=== PATIENT | female | born 1990 | race Hispanic/Latino ===

== ENCOUNTER 2018-11-30 15:54 | Inpatient (IN) | payer BC ==
[2018-11-30] MEDS ORDERED: CORDARONE 150 MG in D5W 100 ML IV ONE (16:08)
[2018-11-30] MEDS ORDERED: VERSED IV ONE (16:17)
[2018-11-30] MEDS ORDERED: ZOFRAN ONE (16:21)
[2018-11-30] MEDS ORDERED: VERSED IV NR (17:00)
[2018-11-30] MEDS ORDERED: CORDARONE 900 MG in D5W 482 ML IV SCH (17:00)
[2018-11-30 17:03] LABS: Basophils # (Auto) 0.1 K/mm3 (0.0-0.1); Basophils % (Auto) 1.3 % (0.0-1.8); Eosinophils # (Auto) 0.1 K/mm3 (0.0-0.4); Eosinophils % (Auto) 0.9 % (0.0-4.3); Hematocrit 39.2 % (30.3-42.9); Hemoglobin 13.3 gm/dl (10.1-14.3); Lymphocytes # (Auto) 1.4 K/mm3 (1.2-5.4); Lymphocytes % (Auto) 23.5 % (13.4-35.0); Mean Corpuscular HGB Conc 34 % (30-34); Mean Corpuscular Volume 81 fl (79-97); Monocytes # (Auto) 0.5 K/mm3 (0.0-0.8); Monocytes % (Auto) 7.9 % (0.0-7.3); Platelet Count 215 K/mm3 (140-440); Red Blood Count 4.82 M/mm3 (3.65-5.03); Red Cell Distribution Width 12.7 % (13.2-15.2)
[2018-11-30 17:17] LABS: INR 0.9 (0.87-1.13)
[2018-11-30 17:18] LABS: Partial Thromboplastin Time 25.5 Sec. (24.2-36.6)
[2018-11-30 17:23] LABS: Creatine Kinase MB 1.2 ng/mL (0.0-4.0)
[2018-11-30 17:27] LABS: BUN/Creatinine Ratio 25; Blood Urea Nitrogen 10 mg/dL (7-17); Calcium 8.7 mg/dL (8.4-10.2); Hemolysis Index 16
--- NOTE | 2018-11-30 17:37 | Emergency Department Report ---
ED Palpitations HPI - General Chief Complaint: Arrhythmia/Palpitations Stated Complaint: HIGH HEART RATE Time Seen by Provider: 11/30/18 16:07 Source: patient, EMS Mode of arrival: Stretcher Limitations: No Limitations - History of Present Illness Initial Comments: 28-year-old female with a past medical history of PCOS and WPW presents the hospital with complaints of palpitations and shortness of breath since 11 AM. Patient denies chest pain or diaphoresis. Patient is noted to have a narrow and wide complex tachycardic arrhythmia with a rate in the high 200s. Patient received adenosine without improvement. She continues to complain of shortness of breath and palpitations without pain. Patient has had episodes of tachycardia associated with WPW. A daily medication was recommended however, patient did not want to take a daily medication for an infrequent tachycardic episodes. Her warp knitter helper is Dr. Pérez (sp?) With [facility] - Related Data Allergies Allergy/AdvReac Type Severity Reaction Status Date / Time metformin AdvReac Hives Verified 11/30/18 17:24 ED Review of Systems ROS: Stated complaint: HIGH HEART RATE Other details as noted in HPI Comment: All other systems reviewed and negative ED Past Medical Hx - Past Medical History Previous Medical History?: Yes Additional medical history: WPW, Polycystic ovaries - Surgical History Past Surgical History?: No - Social History Smoking Status: Current Some Day Smoker Substance Use Type: Alcohol ED Physical Exam - General Limitations: No Limitations - Other Other exam information: General: No acute distress Head exam: Atraumatic, normocephalic Eyes exam: Normal appearance, pupils equal reactive to light, extraocular movements intact ENT: Moist mucous membrane, normal oropharynx Neck exam: Normal inspection, full range of motion, no meningismus nontender Respiratory exam: Clear to auscultation bilateral, no wheezes, rales, crackles Cardiovascular: Tachycardic irregular rhythm Abdomen: Soft, nondistended, and nontender, with normal bowel sounds, no rebound, or guarding Extremity: Full range of motion normal inspection no deformity Back: Normal Inspection, full range of motion, no tenderness Neurologic: Alert, oriented x3, cranial nerves intact, no motor or sensory deficit Psychiatric: normal affect, normal mood Skin: Warm, dry, intact ED Course Vital Signs 11/30/18 11/30/18 11/30/18 16:04 16:15 16:30 Pulse Rate 202 H 232 H 130 H Respiratory 17 28 H Rate Blood Pressure 137/70 111/77 11/30/18 11/30/18 11/30/18 16:45 17:00 17:15 Pulse Rate 120 H 120 H 115 H Respiratory 23 14 19 Rate Blood Pressure 137/70 119/77 111/77 - Consultations Consultation #1: 11/30/18 17:37 case d/w Dr doty, will consult. - Procedure Description Procedures done: Synchronized cardioversion. Patient did not respond to amiodarone 150 mg boluses and continued to have heart rates to close the 300 with intermittent wide-complex tachycardia. Patient received Versed 5 mg and 4mg of Zofran. Patient received synchronized cardioversion at 50 J without improvement. Increase to 100 J of synchronized cardioversion with conversion to sinus rhythm. Patient tolerated procedure well ED Medical Decision Making - Lab Data Result diagrams: 11/30/18 16:47 11/30/18 16:47 Lab Results 11/30/18 11/30/18 11/30/18 Range/Units 16:47 16:47 16:47 WBC 6.1 (4.5-11.0) K/mm3 RBC 4.82 (3.65-5.03) M/mm3 Hgb 13.3 (10.1-14.3) gm/dl Hct 39.2 (30.3-42.9) % MCV 81 (79-97) fl MCH 28 (28-32) pg MCHC 34 (30-34) % RDW 12.7 L (13.2-15.2) % Plt Count 215 (140-440) K/mm3 Lymph % (Auto) 23.5 (13.4-35.0) % [place] % (Auto) 7.9 H (0.0-7.3) % Eos % (Auto) 0.9 (0.0-4.3) % Baso % (Auto) 1.3 (0.0-1.8) % Lymph # 1.4 (1.2-5.4) K/mm3 [place] # 0.5 (0.0-0.8) K/mm3 Eos # 0.1 (0.0-0.4) K/mm3 Baso # 0.1 (0.0-0.1) K/mm3 Seg Neutrophils % 66.4 (40.0-70.0) % Seg Neutrophils # 4.0 (1.8-7.7) K/mm3 PT (12.2-14.9) Sec. INR (0.87-1.13) APTT (24.2-36.6) Sec. Sodium 147 H (137-145) mmol/L Potassium 4.1 (3.6-5.0) mmol/L Chloride 108.7 H (98-107) mmol/L Carbon Dioxide 26 (22-30) mmol/L Anion Gap 16 mmol/L BUN 10 (7-17) mg/dL Creatinine 0.4 L (0.7-1.2) mg/dL Estimated GFR > 60 ml/min BUN/Creatinine Ratio 25 % Glucose 109 H (65-100) mg/dL Calcium 8.7 (8.4-10.2) mg/dL Magnesium 1.90 (1.7-2.3) mg/dL Total Creatine Kinase 47 (30-135) units/L CK-MB (CK-2) 1.2 (0.0-4.0) ng/mL CK-MB (CK-2) Rel Index 2.5 (0-4) Troponin T < 0.010 (0.00-0.029) ng/mL TSH < 0.005 L (0.270-4.200) mlU/mL Free T4 3.40 H (0.76-1.46) ng/dL HCG, Qual (Negative) 11/30/18 11/30/18 Range/Units 16:47 16:47 WBC (4.5-11.0) K/mm3 RBC (3.65-5.03) M/mm3 Hgb (10.1-14.3) gm/dl Hct (30.3-42.9) % MCV (79-97) fl MCH (28-32) pg MCHC (30-34) % RDW (13.2-15.2) % Plt Count (140-440) K/mm3 Lymph % (Auto) (13.4-35.0) % [place] % (Auto) (0.0-7.3) % Eos % (Auto) (0.0-4.3) % Baso % (Auto) (0.0-1.8) % Lymph # (1.2-5.4) K/mm3 [place] # (0.0-0.8) K/mm3 Eos # (0.0-0.4) K/mm3 Baso # (0.0-0.1) K/mm3 Seg Neutrophils % (40.0-70.0) % Seg Neutrophils # (1.8-7.7) K/mm3 PT 12.6 (12.2-14.9) Sec. INR 0.90 (0.87-1.13) APTT 25.5 (24.2-36.6) Sec. Sodium (137-145) mmol/L Potassium (3.6-5.0) mmol/L Chloride (98-107) mmol/L Carbon Dioxide (22-30) mmol/L Anion Gap mmol/L BUN (7-17) mg/dL Creatinine (0.7-1.2) mg/dL Estimated GFR ml/min BUN/Creatinine Ratio % Glucose (65-100) mg/dL Calcium (8.4-10.2) mg/dL Magnesium (1.7-2.3) mg/dL Total Creatine Kinase (30-135) units/L CK-MB (CK-2) (0.0-4.0) ng/mL CK-MB (CK-2) Rel Index (0-4) Troponin T (0.00-0.029) ng/mL TSH (0.270-4.200) mlU/mL Free T4 (0.76-1.46) ng/dL HCG, Qual Negative (Negative) - EKG Data -: EKG Interpreted by Me (afflutter wpw 2:1 block) EKG shows normal: axis (qrs -52), QRS complexes (qrsd 123) Rate: tachycardia (179) - EKG Data When compared to previous EKG there are: previous EKG unavailable 11/30/18 17:56 EKG after cardioversion shows sinus tach rate 129 with a repol abnormality. WPW - Medical Decision Making Patient did not respond to amiodarone 150 mg boluses and continued to have heart rates to close the 300s with intermittent wide-complex tachycardia. Patient received Versed 5 mg and 4mg of Zofran. Patient received synchronized cardioversion at 50 J without improvement. Increase to 100 J of synchronized cardioversion with conversion to sinus rhythm. Patient tolerated procedure well Case discussed with cardiology Dr. Farah Case discussed with hospitalist Dr Alan for admission - Differential Diagnosis SVT, A. fib, a flutter, WPW, V. tach Critical Care Time: Yes Critical care time in (mins) excluding proc time.: 35 Critical care attestation.: If time is entered above; I have spent that time in minutes in the direct care of this critically ill patient, excluding procedure time. ED Disposition Clinical Impression: WPW (Mgdtb-Nxjqtmjsu-Kinpc syndrome), Atrial flutter with rapid ventricular response Disposition: DC-09 OP ADMIT IP TO THIS HOSP Is pt being admited?: Yes Condition: Stable Time of Disposition: 17:43 (Dr Alan/hosp)
[2018-11-30] MEDS ORDERED: ZOFRAN IV ONE (17:57)
[2018-11-30] MEDS ORDERED: NACL 0.9% 1000 ML 1,000 ML IV ONE (17:59)
[2018-11-30] MEDS ORDERED: CORDARONE IV ONE (18:58)
[2018-11-30] MEDS ORDERED: TYLENOL PO PRN (22:07)
[2018-11-30] MEDS ORDERED: ZOFRAN IV PRN (22:07)
[2018-11-30] MEDS ORDERED: DILAUDID IV PRN (22:07)
[2018-11-30] MEDS ORDERED: SODIUM CHLORIDE FLUSH SYRINGE 10 ML IV PRN (22:07)
--- NOTE | 2018-11-30 22:14 | History and Physical Report ---
History of Present Illness Date of examination: 11/30/18 Date of admission: 11/30/18 18:00 Medications and Allergies Allergies Allergy/AdvReac Type Severity Reaction Status Date / Time metformin AdvReac Hives Verified 11/30/18 17:24 Active Meds: Active Medications Midazolam HCl (Versed) 5 mg IV ONCE NR Stop: 11/30/18 23:59 Last Admin: 11/30/18 16:18 Dose: 5 mg Documented by: Exam - Constitutional Vitals: Temp Pulse Resp BP Pulse Ox 98.8 F 117 H 14 118/72 98 11/30/18 19:50 11/30/18 19:50 11/30/18 19:50 11/30/18 19:50 11/30/18 19:50 Results - Labs CBC & Chem 7: 11/30/18 16:47 11/30/18 16:47 Labs: Laboratory Last Values WBC 6.1 K/mm3 (4.5-11.0) 11/30/18 16:47 RBC 4.82 M/mm3 (3.65-5.03) 11/30/18 16:47 Hgb 13.3 gm/dl (10.1-14.3) 11/30/18 16:47 Hct 39.2 % (30.3-42.9) 11/30/18 16:47 MCV 81 fl (79-97) 11/30/18 16:47 MCH 28 pg (28-32) 11/30/18 16:47 MCHC 34 % (30-34) 11/30/18 16:47 RDW 12.7 % (13.2-15.2) L 11/30/18 16:47 Plt Count 215 K/mm3 (140-440) 11/30/18 16:47 Lymph % (Auto) 23.5 % (13.4-35.0) 11/30/18 16:47 [place] % (Auto) 7.9 % (0.0-7.3) H 11/30/18 16:47 Eos % (Auto) 0.9 % (0.0-4.3) 11/30/18 16:47 Baso % (Auto) 1.3 % (0.0-1.8) 11/30/18 16:47 Lymph # 1.4 K/mm3 (1.2-5.4) 11/30/18 16:47 [place] # 0.5 K/mm3 (0.0-0.8) 11/30/18 16:47 Eos # 0.1 K/mm3 (0.0-0.4) 11/30/18 16:47 Baso # 0.1 K/mm3 (0.0-0.1) 11/30/18 16:47 Seg Neutrophils % 66.4 % (40.0-70.0) 11/30/18 16:47 Seg Neutrophils # 4.0 K/mm3 (1.8-7.7) 11/30/18 16:47 PT 12.6 Sec. (12.2-14.9) 11/30/18 16:47 INR 0.90 (0.87-1.13) 11/30/18 16:47 APTT 25.5 Sec. (24.2-36.6) 11/30/18 16:47 Sodium 147 mmol/L (137-145) H 11/30/18 16:47 Potassium 4.1 mmol/L (3.6-5.0) 11/30/18 16:47 Chloride 108.7 mmol/L (98-107) H 11/30/18 16:47 Carbon Dioxide 26 mmol/L (22-30) 11/30/18 16:47 Anion Gap 16 mmol/L 11/30/18 16:47 BUN 10 mg/dL (7-17) 11/30/18 16:47 Creatinine 0.4 mg/dL (0.7-1.2) L 11/30/18 16:47 Estimated GFR > 60 ml/min 11/30/18 16:47 BUN/Creatinine Ratio 25 % 11/30/18 16:47 Glucose 109 mg/dL (65-100) H 11/30/18 16:47 Calcium 8.7 mg/dL (8.4-10.2) 11/30/18 16:47 Magnesium 1.90 mg/dL (1.7-2.3) 11/30/18 16:47 Total Creatine Kinase 47 units/L (30-135) 11/30/18 16:47 CK-MB (CK-2) 1.2 ng/mL (0.0-4.0) 11/30/18 16:47 CK-MB (CK-2) Rel Index 2.5 (0-4) 11/30/18 16:47 Troponin T < 0.010 ng/mL (0.00-0.029) 11/30/18 16:47 TSH < 0.005 mlU/mL (0.270-4.200) L 11/30/18 16:47 Free T4 3.40 ng/dL (0.76-1.46) H 11/30/18 16:47 HCG, Qual Negative (Negative) 11/30/18 16:47
[2018-11-30] MEDS: D5/0.45NS 1,000 ML IV SCH (22:52)
[2018-11-30] MEDS: LOPRESSOR PO SCH (22:53)
[2018-12-01 05:44] LABS: Alanine Aminotransferase 67 units/L (7-56); Albumin 3.3 g/dL (3.9-5); BUN/Creatinine Ratio 23; Blood Urea Nitrogen 7 mg/dL (7-17); Calcium 8.7 mg/dL (8.4-10.2); Hemolysis Index 7
--- NOTE | 2018-12-01 06:28 | Event Note ---
Date: 11/30/18 See H/p in reports WPW Syndrome with SVT--Cardioverted Thyrotoxicosiis--New onset
[2018-12-01] MEDS: TAPAZOLE PO SCH ×3 (06:33→21:23)
--- NOTE | 2018-12-01 07:14 | History and Physical Report ---
CHIEF COMPLAINT: Palpitations since 11:00 a.m. HISTORY OF PRESENT ILLNESS: A 28-year-old with past medical history of WPW syndrome, presents with palpitations and shortness of breath since 11:00 a.m. No chest pain, no diaphoresis. The patient was noted to have a wide complex tachycardia with a rate in the high 200s. The patient was given adenosine without improvement. The patient continued to have palpitations. The patient was initially cardioverted with 50 joules of shock and the second cardioversion was with 100 joules at which point she converted back to sinus tachycardia. This was done in the Emergency Room. The patient is being admitted for further treatment. PAST MEDICAL HISTORY: As mentioned WPW syndrome and polycystic ovaries. PAST SURGICAL HISTORY: None. SOCIAL HISTORY: Smokes over a pack a day. Alcohol occasionally. FAMILY HISTORY: Hypertension. REVIEW OF SYSTEMS: Significant for palpitations, had WPW syndrome with SVT in the past. The patient follows with a certified pharmacy tech at [facility]. Otherwise, review of systems negative. PHYSICAL EXAMINATION: GENERAL: Young female, cooperative during examination, pleasant. VITAL SIGNS: Heart rate of 117, temperature 98.2, pulse is 117, blood pressure 109/64. HEENT: Unremarkable. NECK: Supple, no thyromegaly present, no carotid bruit. LUNGS: Clear to auscultation and percussion. Good air entry. CARDIOVASCULAR: S1, S2 heard. No gallop, no murmur, no rub. Apical impulse in left fifth intercostal space and midclavicular line. ABDOMEN: Soft and benign. No hepatosplenomegaly, no guarding, no rigidity. Hernial orifices are normal. EXTREMITIES: Good pedal pulses. No pedal edema. CENTRAL NERVOUS SYSTEM: Alert and oriented x 4, nonfocal exam. SKIN: Normal. LABORATORY DATA: Significant for sodium of 147, TSH of less than 0.005, free T4 of 3.40. ASSESSMENT AND PLAN: 1. Supraventricular tachycardia. The patient converted back to sinus tachycardia. The patient initiated on metoprolol. Cardiology consult requested. 2. Thyrotoxicosis, new onset. The patient does not know about her thyroid problem. TSH is low and free T4 is high, consistent with thyrotoxicosis. Thyroid panel ordered, antibodies ordered. The patient is initiated on methimazole 5 mg q.8h. after the blood is drawn for the thyroid panel. The patient to follow with Endocrinology as outpatient. 3. Nicotine dependence. Nicoderm patch. 4. Deep venous thrombosis prophylaxis, Lovenox and GI prophylaxis. JOB# [id number] VSEpifanio/NTS
[2018-12-01] MEDS: D5/0.45NS 1,000 ML IV SCH ×2 (07:19→18:37)
--- NOTE | 2018-12-01 11:52 | Consultation ---
Addendum entered and electronically signed by PÉREZ MURO MD 12/01/18 14:48: Patient is in SR with WPW pattern, Will hold beta liam.F/U Echo. Original Note: History of Present Illness Consult date: 12/01/18 Requesting physician: CEE WERNER Consult reason: tachycardia, other (wpw) History of present illness: The pt is a 28-year-old female with a past medical history of PCOS and WPW s/p ablation at 18 years of age who presented the hospital with complaints of palpitations and shortness of breath since 11 AM on the day of presentation. Patient denies chest pain or diaphoresis. Patient was noted to have a narrow and wide complex tachycardia with a rate in the high 200s. Patient received adenosine and IV amio without improvement. She received synchronized cardioversion at 50 J without improvement and then 100 J of synchronized cardioversion with conversion to sinus rhythm in ED. She has remained in SR/ST overnight. She denies any current cardiac complaints. She has been found to have significant hyperthyroidism, no prior history of thyroid issues. Her transcription manager is Dr. Pérez (sp?) with [facility]. Of note, she has a 4 month old child and is still breast feeding. Past History Past Medical History: other (WPW) Past Surgical History: Other (s/p ablation at 18 YOA) Medications and Allergies Allergies Allergy/AdvReac Type Severity Reaction Status Date / Time metformin AdvReac Hives Verified 11/30/18 17:24 Home Medications Medication Instructions Recorded Confirmed Last Taken Type No Known Home Medications [No 11/30/18 11/30/18 Unknown History Reported Home Medications] Active Meds: Active Medications Acetaminophen (Tylenol) 650 mg PO Q4H PRN PRN Reason: Pain MILD(1-3)/Fever >100.5/DIEZ Hydromorphone HCl (Dilaudid) 0.5 mg IV Q3H PRN PRN Reason: Pain , Severe (7-10) Dextrose/Sodium Chloride (D5/0.45ns) 1,000 mls @ 100 mls/hr IV DIRECT HODA Last Admin: 12/01/18 07:19 Dose: 100 mls/hr Documented by: Methimazole (Tapazole) 5 mg PO Q8HR HODA Last Admin: 12/01/18 06:33 Dose: 5 mg Documented by: Metoprolol Tartrate (Lopressor) 25 mg PO Q12HR [facility] Last Admin: 11/30/18 22:53 Dose: 25 mg Documented by: Nicotine (Habitrol) 14 mg TD QDAY [facility] Ondansetron HCl (Zofran) 4 mg IV Q8H PRN PRN Reason: Nausea And Vomiting Sodium Chloride (Sodium Chloride Flush Syringe 10 Ml) 10 ml IV BID [facility] Sodium Chloride (Sodium Chloride Flush Syringe 10 Ml) 10 ml IV PRN PRN PRN Reason: LINE FLUSH Review of Systems Constitutional: no weight loss, no weight gain, no fever, no chills, no sweats Ears, nose, mouth and throat: no ear pain, no nose pain, no sinus pressure, no sinus pain Cardiovascular: palpitations, rapid/irregular heart beat, shortness of breath, dyspnea on exertion, no chest pain, no orthopnea, no edema, no syncope, no lightheadedness, no leg edema Respiratory: shortness of breath, dyspnea on exertion, no cough, no congestion, no wheezing, no pain on inspiration Gastrointestinal: no abdominal pain, no nausea, no vomiting, no diarrhea, no constipation, no change in bowel habits Genitourinary Female: no pelvic pain, no flank pain, no dysuria, no urinary frequency, no urgency Musculoskeletal: no neck stiffness, no neck pain, no shooting arm pain, no arm numbness/tingling, no low back pain, no shooting leg pain, no leg numbness/tingling Integumentary: no rash, no pruritis, no redness, no sores, no wounds Neurological: no head injury, no paralysis, no weakness, no parathesias, no numbness, no tingling, no seizures, no syncope Psychiatric: no anxiety Endocrine: no cold intolerance, no heat intolerance Hematologic/Lymphatic: no easy bruising, no easy bleeding Allergic/Immunologic: no urticaria, no wheezing Physical Examination Vital Signs Pulse 202 H 11/30/18 16:04 General appearance: no acute distress HEENT: Positive: PERRL, Normocephaly, Mucus Membranes Moist Neck: Positive: neck supple, trachea midline Cardiac: Positive: Reg Rate and Rhythm, S1/S2 Lungs: Positive: clear to auscultation Neuro: Positive: Grossly Intact, Cranial Nerve 2-12 Intact Abdomen: Positive: Soft. Negative: Tender Skin: Positive: Clear. Negative: Rash, Wound Musculoskeletal: No Pain Extremities: Absent: edema Results 11/30/18 16:47 12/01/18 04:29 Cardiac Enzymes 11/30/18 12/01/18 Range/Units 16:47 04:29 AST 33 (5-40) units/L CK-MB (CK-2) 1.2 (0.0-4.0) ng/mL Coagulation 11/30/18 Range/Units 16:47 PT 12.6 (12.2-14.9) Sec. INR 0.90 (0.87-1.13) APTT 25.5 (24.2-36.6) Sec. CBC 11/30/18 Range/Units 16:47 WBC 6.1 (4.5-11.0) K/mm3 RBC 4.82 (3.65-5.03) M/mm3 Hgb 13.3 (10.1-14.3) gm/dl Hct 39.2 (30.3-42.9) % Plt Count 215 (140-440) K/mm3 Lymph # 1.4 (1.2-5.4) K/mm3 [place] # 0.5 (0.0-0.8) K/mm3 Eos # 0.1 (0.0-0.4) K/mm3 Baso # 0.1 (0.0-0.1) K/mm3 Comprehensive Metabolic Panel 11/30/18 12/01/18 Range/Units 16:47 04:29 Sodium 147 H 143 (137-145) mmol/L Potassium 4.1 4.0 (3.6-5.0) mmol/L Chloride 108.7 H 107.9 H (98-107) mmol/L Carbon Dioxide 26 24 (22-30) mmol/L BUN 10 7 (7-17) mg/dL Creatinine 0.4 L 0.3 L (0.7-1.2) mg/dL Glucose 109 H 105 H (65-100) mg/dL Calcium 8.7 8.7 (8.4-10.2) mg/dL AST 33 (5-40) units/L ALT 67 H (7-56) units/L Alkaline Phosphatase 116 (35-129) units/L Total Protein 5.5 L (6.3-8.2) g/dL Albumin 3.3 L (3.9-5) g/dL - Imaging and Cardiology Echo: pending EKG: report reviewed, image reviewed EKG interpretations - Telemetry EKG Rhythm: Sinus Tachycardia - EKG Supraventricular dysrhythmia: atrial flutter Assessment and Plan Agree with current cardiac regimen - PO lopressor. Obtain echo. Obtain EP c onsultation. Pt's belly dancer is Dr. Pérez (sp?) with [facility]. She states that if ablation is ultimately required, she wishes to return to her primary cardiology team for this procedure. The patient has been seen in conjunction with Dr. Ridley who agrees with the assessment and plan of care. - Patient Problems (1) Atrial flutter with rapid ventricular response Current Visit: Yes Status: Acute (2) WPW (Frfjl-Domlmkkcu-Stgql syndrome) Current Visit: Yes Status: Chronic (3) Hyperthyroidism Current Visit: Yes Status: Chronic (4) History of prior ablation treatment Current Visit: Yes Status: Resolved
[2018-12-01] MEDS: SODIUM CHLORIDE FLUSH SYRINGE 10 ML IV SCH ×2 (12:20→22:00)
[2018-12-01] MEDS: HABITROL TD SCH (12:21)
[2018-12-01] MEDS: LOPRESSOR PO SCH (12:21)
--- NOTE | 2018-12-01 15:21 | Progress Note ---
Assessment and Plan Assessment and plan: WPW syndrome Atrial flutter with rapid ventricular response - Patient was shocked in the ED and converted to sinus rhythm - Patient had history of ablation - Followed by [facility] [employer] - Was on beta liam, and held today per cardiology Hypothyroidism - On methimazole - Need outpatient follow-up with interactive developer, discussed that in detail with the patient and verbalized she understood DVT prophylaxis - Lovenox Disposition - Continue inpatient care History Interval history: Patient was seen and evaluated this morning, no palpitation. Hospitalist Physical - Physical exam Narrative exam: Not in cardiopulmonary distress. The patient appeared well nourished and normally developed. Vital signs as documented. Head exam is unremarkable. No scleral icterus . Neck is without jugular venous distension, thyromegaly, or carotid bruits. Lungs are clear to auscultation. Cardiac exam reveals regular rate and Rhythm. Abdominal exam reveals normal bowel sounds, no masses, no organomegaly and no aortic enlargement. Extremities are nonedematous and both femoral and pedal pulses are normal. PACKAGE WORKER: Alert and oriented 3. No focal weakness. - Constitutional Vitals: Temp Pulse Resp BP Pulse Ox 98.4 F 80 20 110/61 94 12/01/18 08:28 12/01/18 08:28 12/01/18 08:28 12/01/18 08:28 12/01/18 08:28 General appearance: Present: no acute distress Results - Labs CBC & Chem 7: 11/30/18 16:47 12/01/18 04:29 Labs: Laboratory Last Values WBC 6.1 K/mm3 (4.5-11.0) 11/30/18 16:47 RBC 4.82 M/mm3 (3.65-5.03) 11/30/18 16:47 Hgb 13.3 gm/dl (10.1-14.3) 11/30/18 16:47 Hct 39.2 % (30.3-42.9) 11/30/18 16:47 MCV 81 fl (79-97) 11/30/18 16:47 MCH 28 pg (28-32) 11/30/18 16:47 MCHC 34 % (30-34) 11/30/18 16:47 RDW 12.7 % (13.2-15.2) L 11/30/18 16:47 Plt Count 215 K/mm3 (140-440) 11/30/18 16:47 Lymph % (Auto) 23.5 % (13.4-35.0) 11/30/18 16:47 [place] % (Auto) 7.9 % (0.0-7.3) H 11/30/18 16:47 Eos % (Auto) 0.9 % (0.0-4.3) 11/30/18 16:47 Baso % (Auto) 1.3 % (0.0-1.8) 11/30/18 16:47 Lymph # 1.4 K/mm3 (1.2-5.4) 11/30/18 16:47 [place] # 0.5 K/mm3 (0.0-0.8) 11/30/18 16:47 Eos # 0.1 K/mm3 (0.0-0.4) 11/30/18 16:47 Baso # 0.1 K/mm3 (0.0-0.1) 11/30/18 16:47 Seg Neutrophils % 66.4 % (40.0-70.0) 11/30/18 16:47 Seg Neutrophils # 4.0 K/mm3 (1.8-7.7) 11/30/18 16:47 PT 12.6 Sec. (12.2-14.9) 11/30/18 16:47 INR 0.90 (0.87-1.13) 11/30/18 16:47 APTT 25.5 Sec. (24.2-36.6) 11/30/18 16:47 Sodium 143 mmol/L (137-145) 12/01/18 04:29 Potassium 4.0 mmol/L (3.6-5.0) 12/01/18 04:29 Chloride 107.9 mmol/L (98-107) H 12/01/18 04:29 Carbon Dioxide 24 mmol/L (22-30) 12/01/18 04:29 Anion Gap 15 mmol/L 12/01/18 04:29 BUN 7 mg/dL (7-17) 12/01/18 04:29 Creatinine 0.3 mg/dL (0.7-1.2) L 12/01/18 04:29 Estimated GFR > 60 ml/min 12/01/18 04:29 BUN/Creatinine Ratio 23 % 12/01/18 04:29 Glucose 105 mg/dL (65-100) H 12/01/18 04:29 Hemoglobin A1c 5.6 % (4-6) 12/01/18 04:29 Calcium 8.7 mg/dL (8.4-10.2) 12/01/18 04:29 Magnesium 1.90 mg/dL (1.7-2.3) 11/30/18 16:47 Total Bilirubin < 0.20 mg/dL (0.1-1.2) 12/01/18 04:29 AST 33 units/L (5-40) 12/01/18 04:29 ALT 67 units/L (7-56) H 12/01/18 04:29 Alkaline Phosphatase 116 units/L (35-129) 12/01/18 04:29 Total Creatine Kinase 47 units/L (30-135) 11/30/18 16:47 CK-MB (CK-2) 1.2 ng/mL (0.0-4.0) 11/30/18 16:47 CK-MB (CK-2) Rel Index 2.5 (0-4) 11/30/18 16:47 Troponin T < 0.010 ng/mL (0.00-0.029) 11/30/18 16:47 Total Protein 5.5 g/dL (6.3-8.2) L 12/01/18 04:29 Albumin 3.3 g/dL (3.9-5) L 12/01/18 04:29 Albumin/Globulin Ratio 1.5 % 12/01/18 04:29 TSH < 0.005 mlU/mL (0.270-4.200) L 11/30/18 22:39 Free T4 3.40 ng/dL (0.76-1.46) H 11/30/18 22:39 HCG, Qual Negative (Negative) 11/30/18 16:47 Nutrition/Malnutrition Assess - Dietary Evaluation Nutrition/Malnutrition Findings: Zpiem-Ximiovxth-Vjglb syndrome Tachycardia
[2018-12-01] MEDS: LOVENOX SUB-Q SCH (21:24)
[2018-12-02] MEDS: D5/0.45NS 1,000 ML IV SCH ×3 (03:20→21:28)
[2018-12-02 04:34] LABS: BUN/Creatinine Ratio 23; Blood Urea Nitrogen 7 mg/dL (7-17); Calcium 9.1 mg/dL (8.4-10.2); Hemolysis Index 12
[2018-12-02] MEDS: TAPAZOLE PO SCH ×3 (05:14→21:25)
[2018-12-02] MEDS: HABITROL TD SCH (09:57)
[2018-12-02] MEDS: SODIUM CHLORIDE FLUSH SYRINGE 10 ML IV SCH ×2 (09:57→21:24)
--- NOTE | 2018-12-02 15:53 | Progress Note ---
Assessment and Plan Prexcited AFIB 209 bpm Avoid AV miroslava blocking agents, adenosine, IV amiodarone Recommend 2nd attempt at catheter ablation Pt will contact EP in [place] Discussed case with Dr. Parsons EP in [place] ([facility] partner) Recommend flecainide 50 BID for now Consider AM after initiate therapy with flecainide Flecainide contraindicated with breast feeding, I had a lengthy discussion with the patient Hyperthyroidism Plan per primary team Subjective Date of service: 12/02/18 Principal diagnosis: hyperthyroid Interval history: Patient is sitting up in bed without any complaints. With minimal exertion her heart rate significantly increases. Telemetry reveals sinus tachycardia. Objective Vital Signs Temp Pulse Resp BP Pulse Ox 12/02/18 13:26 98.0 F 118 H 16 110/73 97 12/02/18 10:00 70 12/02/18 09:36 97.7 F 94 H 16 108/68 97 12/02/18 05:00 69 12/02/18 04:51 97.3 F L 70 16 112/63 97 12/01/18 23:14 98.0 F 90 18 113/67 96 12/01/18 19:53 97.8 F 91 H 16 113/65 97 12/01/18 16:05 97.9 F 88 20 106/62 98 - Physical Examination HEENT: Positive: PERRL, Normocephaly, Mucus Membranes Moist Neck: Positive: neck supple, trachea midline Cardiac: Positive: Regular Rhythm, Tachycardia Neuro: Positive: Grossly Intact, Cranial Nerve 2-12 Intact Abdomen: Positive: Soft. Negative: Tender Skin: Positive: Clear. Negative: Rash, Wound Musculoskeletal: No Pain Gait: Normal Gait Extremities: Absent: edema - Labs and Meds Comprehensive Metabolic Panel 12/02/18 Range/Units 03:48 Sodium 141 (137-145) mmol/L Potassium 4.1 (3.6-5.0) mmol/L Chloride 105.9 (98-107) mmol/L Carbon Dioxide 24 (22-30) mmol/L BUN 7 (7-17) mg/dL Creatinine 0.3 L (0.7-1.2) mg/dL Glucose 104 H (65-100) mg/dL Calcium 9.1 (8.4-10.2) mg/dL - Imaging and Cardiology EKG: report reviewed, image reviewed Echo: report reviewed (ECHO 12/01/18: EF 50-55%)
--- NOTE | 2018-12-02 18:05 | Progress Note ---
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 History Interval history: Patient was seen and evaluated this morning, no complaints, but showed tachycardia on monitor. Hospitalist Physical - Physical exam Narrative exam: Not in cardiopulmonary distress. The patient appeared well nourished and normally developed. Vital signs as documented. Head exam is unremarkable. No scleral icterus . Neck is without jugular venous distension, thyromegaly, or carotid bruits. Lungs are clear to auscultation. Cardiac exam reveals regular rate and Rhythm. Tachycardia. Abdominal exam reveals normal bowel sounds. Extremities are nonedematous and both femoral and pedal pulses are normal. THIRD HELPER: Alert and oriented 3. No focal weakness. - Constitutional Vitals: Temp Pulse Resp BP Pulse Ox 97.7 F 116 H 16 113/63 96 12/02/18 17:31 12/02/18 17:31 12/02/18 17:31 12/02/18 17:31 12/02/18 17:31 General appearance: Present: no acute distress Results - Labs CBC & Chem 7: 11/30/18 16:47 12/02/18 03:48 Labs: Laboratory Last Values WBC 6.1 K/mm3 (4.5-11.0) 11/30/18 16:47 RBC 4.82 M/mm3 (3.65-5.03) 11/30/18 16:47 Hgb 13.3 gm/dl (10.1-14.3) 11/30/18 16:47 Hct 39.2 % (30.3-42.9) 11/30/18 16:47 MCV 81 fl (79-97) 11/30/18 16:47 MCH 28 pg (28-32) 11/30/18 16:47 MCHC 34 % (30-34) 11/30/18 16:47 RDW 12.7 % (13.2-15.2) L 11/30/18 16:47 Plt Count 215 K/mm3 (140-440) 11/30/18 16:47 Lymph % (Auto) 23.5 % (13.4-35.0) 11/30/18 16:47 [place] % (Auto) 7.9 % (0.0-7.3) H 11/30/18 16:47 Eos % (Auto) 0.9 % (0.0-4.3) 11/30/18 16:47 Baso % (Auto) 1.3 % (0.0-1.8) 11/30/18 16:47 Lymph # 1.4 K/mm3 (1.2-5.4) 11/30/18 16:47 [place] # 0.5 K/mm3 (0.0-0.8) 11/30/18 16:47 Eos # 0.1 K/mm3 (0.0-0.4) 11/30/18 16:47 Baso # 0.1 K/mm3 (0.0-0.1) 11/30/18 16:47 Seg Neutrophils % 66.4 % (40.0-70.0) 11/30/18 16:47 Seg Neutrophils # 4.0 K/mm3 (1.8-7.7) 11/30/18 16:47 PT 12.6 Sec. (12.2-14.9) 11/30/18 16:47 INR 0.90 (0.87-1.13) 11/30/18 16:47 APTT 25.5 Sec. (24.2-36.6) 11/30/18 16:47 Sodium 141 mmol/L (137-145) 12/02/18 03:48 Potassium 4.1 mmol/L (3.6-5.0) 12/02/18 03:48 Chloride 105.9 mmol/L (98-107) 12/02/18 03:48 Carbon Dioxide 24 mmol/L (22-30) 12/02/18 03:48 Anion Gap 15 mmol/L 12/02/18 03:48 BUN 7 mg/dL (7-17) 12/02/18 03:48 Creatinine 0.3 mg/dL (0.7-1.2) L 12/02/18 03:48 Estimated GFR > 60 ml/min 12/02/18 03:48 BUN/Creatinine Ratio 23 % 12/02/18 03:48 Glucose 104 mg/dL (65-100) H 12/02/18 03:48 Hemoglobin A1c 5.6 % (4-6) 12/01/18 04:29 Calcium 9.1 mg/dL (8.4-10.2) 12/02/18 03:48 Magnesium 1.90 mg/dL (1.7-2.3) 11/30/18 16:47 Total Bilirubin < 0.20 mg/dL (0.1-1.2) 12/01/18 04:29 AST 33 units/L (5-40) 12/01/18 04:29 ALT 67 units/L (7-56) H 12/01/18 04:29 Alkaline Phosphatase 116 units/L (35-129) 12/01/18 04:29 Total Creatine Kinase 47 units/L (30-135) 11/30/18 16:47 CK-MB (CK-2) 1.2 ng/mL (0.0-4.0) 11/30/18 16:47 CK-MB (CK-2) Rel Index 2.5 (0-4) 11/30/18 16:47 Troponin T < 0.010 ng/mL (0.00-0.029) 11/30/18 16:47 Total Protein 5.5 g/dL (6.3-8.2) L 12/01/18 04:29 Albumin 3.3 g/dL (3.9-5) L 12/01/18 04:29 Albumin/Globulin Ratio 1.5 % 12/01/18 04:29 TSH < 0.005 mlU/mL (0.270-4.200) L 11/30/18 22:39 Free T4 3.40 ng/dL (0.76-1.46) H 11/30/18 22:39 HCG, Qual Negative (Negative) 11/30/18 16:47
[2018-12-02] MEDS: TAMBOCOR PO SCH ×2 (18:58→21:24)
[2018-12-02] MEDS: LOVENOX SUB-Q SCH (21:23)
[2018-12-03] MEDS ORDERED: NACL 0.9% 1000 ML 1,000 ML IV ONE (05:19)
[2018-12-03] MEDS: TAPAZOLE PO SCH ×2 (05:27→15:07)
[2018-12-03] MEDS: HABITROL TD SCH (09:03)
[2018-12-03] MEDS: TAMBOCOR PO SCH (09:06)
[2018-12-03] MEDS: SODIUM CHLORIDE FLUSH SYRINGE 10 ML IV SCH (09:09)
--- NOTE | 2018-12-03 13:05 | Progress Note ---
Assessment and Plan Prexcited AFIB 209 bpm Avoid AV miroslava blocking agents, adenosine, IV amiodarone Recommend 2nd attempt at catheter ablation Discussed case with Dr. Jaqueline ORTIZ in [place] ([facility] partner) Okay to discharge home on flecainide 50mg BID after 12 lead ekg today Flecainide contraindicated with breast feeding, I had a lengthy discussion with the patient Hyperthyroidism Plan per primary team Subjective Date of service: 12/03/18 Principal diagnosis: hyperthyroid Interval history: Patient is sitting up in bed without any complaints. Telemetry was sinus at 100 bpm Objective Vital Signs Temp Pulse Resp BP Pulse Ox 12/03/18 08:51 95 H 109/71 96 12/03/18 04:38 97.7 F 102 H 12 88/47 93 12/03/18 04:00 85 12/02/18 22:15 98.0 F 85 13 100/56 98 12/02/18 19:08 98.5 F 98 H 16 125/65 95 12/02/18 18:32 105 H 121/71 97 12/02/18 17:31 97.7 F 116 H 16 113/63 96 12/02/18 13:26 98.0 F 118 H 16 110/73 97 - Physical Examination HEENT: Positive: PERRL, Normocephaly, Mucus Membranes Moist Neck: Positive: neck supple, trachea midline Cardiac: Positive: Regular Rhythm, Tachycardia Lungs: Positive: clear to auscultation, Normal Breath Sounds Neuro: Positive: Grossly Intact, Cranial Nerve 2-12 Intact Abdomen: Positive: Soft. Negative: Tender Skin: Positive: Clear. Negative: Rash, Wound Musculoskeletal: No Pain Gait: Normal Gait Extremities: Absent: edema - Imaging and Cardiology EKG: report reviewed, image reviewed Echo: report reviewed (ECHO 12/01/18: EF 50-55%)
--- NOTE | 2018-12-03 15:56 | Discharge Summary ---
Providers - Providers Date of Admission: 11/30/18 18:00 Attending physician: JUAN ANTONIO YEAGER MD 11/30/18 17:43 Consult to Physician [CONS] Urgent Comment: DR BARRETT NOTIFIED 1730 Consulting Provider: ANUJ BARRETT Physician Instructions: Reason For Exam: atrial flutter rvr with wpw Primary care physician: VENTILATION WORKER Hospitalization Reason for admission: Hyperthyroidism, WPW syndrome, A. 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 Hyperthyroidism; new onset. discharged with methimazole 5mg po TID; Need outpatient follow-up with platen press feeder, discussed that in detail with the patient and verbalized she understood. Cardiology discussed dyllan ORTIZ and advised to discharge for follow up with them. Disposition: - TO HOME OR SELFCARE Time spent for discharge: 32 minutes - Discharge Diagnoses (1) Atrial flutter with rapid ventricular response Status: Acute (2) Hyperthyroidism Status: Chronic (3) WPW (Qvjos-Kquatziqq-Manjp syndrome) Status: Chronic Core Measure Documentation - Palliative Care Palliative Care/ Comfort Measures: Not Applicable - Core Measures Any of the following diagnoses?: none Exam - Physical Exam Narrative exam: Not in cardiopulmonary distress. The patient appeared well nourished and normally developed. Vital signs as documented. Head exam is unremarkable. No scleral icterus . Neck is without jugular venous distension, thyromegaly, or carotid bruits. Lungs are clear to auscultation. Cardiac exam reveals regular rate and Rhythm. Tachycardia. Abdominal exam reveals normal bowel sounds. Extremities are nonedematous and both femoral and pedal pulses are normal. EQUALIZING SAW OPERATOR: Alert and oriented 3. No focal weakness. - Constitutional Vitals: Temp Pulse Resp BP Pulse Ox 97.7 F 95 H 12 109/71 96 12/03/18 04:38 12/03/18 08:51 12/03/18 04:38 12/03/18 08:51 12/03/18 08:51 Plan Activity: no restrictions Weight Bearing Status: Full Weight Bearing Diet: regular Follow up with: PRIMARY CAREMD [Primary Care Provider] - 7 Days JESSICA HUGHES MD [Staff Physician] - 7 Days Prescriptions: Flecainide [Tambocor] 50 mg PO Q12HR #30 tablet methIMAzole [Tapazole] 5 mg PO Q8HR #60 tablet
[2018-12-03 16:47] VITALS: BP 117/72
[2018-12-06 07:29] LABS: Anti-TPO Antibodies SEE SCANNED RESULT; Thyroglobulin Antibodies SEE SCANNED RESULT
--- NOTE | 2018-12-06 15:49 | Query- Nutrition ---
Cruz Perez____Jessica Date:___12/06/2018 Director Of Nuclear Medicine/CDS:___Cass/Lulú Phone#:___[phone] Exercise your independent professional judgment when responding to query. Questions asked do not imply a particular answer is desired or expected. We greatly appreciate your clarification on this issue. Clinical Documentation States: 28-year-old female with a past medical history of PCOS and WPW presents the hospital with complaints of palpitations and shortness of breath since 11 AM. Clinical Findings Show: Albumin: 3.3 Please select the most appropriate option [] Mild Malnutrition [x] Moderate Malnutrition [] Severe Malnutrition Serum Albumin 2.8 to 3.4 g/dl or Pre-albumin 5 to 17 mg/dl1,2 Inadequate nutritional intake1,2,3,4 NPO > 5 days Weight loss: 5% in 1 month or 7.5% in 3 months or 10% in 6 months1, 3,4 BMI 16 to 18.4 or Weight <90% of ideal body weight1,2,3,4 Serum Albumin < 2.8 g/ dl1,2 Lymphocytes < 1500/ L2 Inadequate nutritional intake3, high stress e.g. major trauma, sepsis,pancreatitis, rodriguez etc. Decubitus ulcers1,2, , skin breakdown2, easy hair pluckability2 Weight <80% standard for height2 Triceps skin fold <3 mm2 Mid-arm muscle circumference <15 cm2 Creatinine-height index <60% standard2 [ ] Cachexia [ ] Emaciated w/Malnutrition [ ] Other: [ ] Unable to determine [ ] Comment/Explanation: Present on Admission: [ x] Yes (Y) [ ] Clinically undeterminable (W) [ ] No (N) Please also document response in your Progress Notes and/or Discharge Summary and indicate if the condition was present on admission. MTDD
--- NOTE | 2018-12-06 15:51 | Query- Abnormal Electrolytes ---
Cruz Vega__Jessica Date:___12/06/2018 Baseball Pitcher/CDS:____Cass/Lulú Phone#:___[phone] Exercise your independent professional judgment when responding to this query. Questions asked do not imply a particular answer is desired or expected. We greatly appreciate your clarification on this issue. Clinical Documentation States: 28-year-old female with a past medical history of PCOS and WPW presents the hospital with complaints of palpitations and shortness of breath since 11 AM. Clinical Findings Show: Sodium: 147 Can you please clarify whether you mean? [ ] Hyponatremia [ ] Hypokalemia [ ] Hypocalcemia [ ] Hypomagnesemia [ x] Hypernatremia [ ] Hyperkalemia [ ] Hypercalcemia [ ] Hypermagnesemia [ ] Sodium deficiency [ ] Potassium deficiency [ ] Hypochloremia [ ] Sodium excess [ ] Potassium excess [ ] Hyperchloremia [ ] Sodium overload [ ] Potassium overload [ ] Hypophosphatemia [ ] Hyperphosphatemia Acidosis; [ ] Respiratory [ ] Metabolic Alkalosis; [ ] Respiratory [ ] Metabolic [ ] Other: [ ] Comment/Explanation: Present on Admission: [ x] Yes (Y) [ ] Clinically undeterminable (W) [ ]No(N) Please also document response in your Progress Notes and/or Discharge Summary and indicate if the condition was present on admission. I don't know why you put a choice of acidosis or alkalosis. FLORENTINOD
== END 2018-12-03 17:13 | disposition home or self-care (01) | DRG 309 ==
LOC: ED 15:54 → 4A 18:00
PROVIDERS: ADMIT Internal Medicine; ATTEND Internal Medicine
DX: I47.1 Supraventricular tachycardia (principal); E87.0 Hyperosmolality and hypernatremia; I45.6 Pre-excitation syndrome; I48.92 Unspecified atrial flutter; E05.90 Thyrotoxicosis, unspecified without thyrotoxic crisis or storm; F17.210 Nicotine dependence, cigarettes, uncomplicated; I48.91 Unspecified atrial fibrillation; Z82.49 Family history of ischemic heart disease and other diseases of the circulatory system
CPT/HCPCS: 36415; 80048; 80053; 82550; 82553; 83036; 83735; 84439; 84443; 84484; 84703; 85025; 85610; 85730; 86800; 93005; 93010; 93306; 96374; 96375; G0378; J0282; J1650; J2250; J2405; J7030; J7060